=== PATIENT | female | born 1980 | race Two or more races ===

== ENCOUNTER 2018-01-29 19:03 | Emergency (ER) | payer SELFPAY ==
[~2018-01-29] VITALS: Ht 160 cm; Wt 57.1 kg
[2018-01-29 19:04] VITALS: BP 135/57
== END 2018-01-29 21:30 | disposition left against medical advice (07) ==
LOC: ER 21:27
DX: Z53.21 Procedure and treatment not carried out due to patient leaving prior to being seen by health care provider (principal); R51 Headache; R20.0 Anesthesia of skin
CPT/HCPCS: 82962

== ENCOUNTER 2018-09-25 19:01 | Emergency (ER) | payer MEDICAID ==
[~2018-09-25] VITALS: Ht 160 cm; Wt 61.0 kg
[2018-09-25 19:23] VITALS: BP 113/69
[2018-09-25 20:02] LABS: CLARITY URINE CLEAR (CLEAR); COLOR URINE YELLOW (YELLOW); KETONES URINE TRACE (NEGATIVE); LEUKOCYTE ESTERASE URINE NEGATIVE (NEGATIVE); NITRITE URINE NEGATIVE (NEGATIVE); OCCULT BLOOD URINE NEGATIVE (NEGATIVE); PH URINE 6.5 (4.5-8.0); PROTEIN URINE NEGATIVE (NEGATIVE); SPECIFIC GRAVITY URINE 1.005 (1.005-1.030); UROBILINOGEN URINE 0.2 E.U./dL (0.2-1.0)
== END 2018-09-25 23:58 | disposition left against medical advice (07) ==
LOC: ER 19:01
DX: Z53.21 Procedure and treatment not carried out due to patient leaving prior to being seen by health care provider (principal)
CPT/HCPCS: 81025